=== PATIENT | male | born 1985 | race Caucasian/White ===

== ENCOUNTER 2018-08-24 22:46 | Emergency (ER) | payer OTHER ==
[2018-08-24 22:58] VITALS: BP 105/64
--- NOTE | 2018-08-25 00:42 | XRay Report ---
CHEST 2 VIEWS INDICATION / CLINICAL INFORMATION: chestpain. COMPARISON: None available. FINDINGS: SUPPORT DEVICES: None. HEART / MEDIASTINUM: No significant abnormality. LUNGS / PLEURA: No significant pulmonary or pleural abnormality. No pneumothorax. ADDITIONAL FINDINGS: No significant additional findings. IMPRESSION: 1. No acute findings. Signer Name: Anatoliy Menjivar MD Signed: 08/25/2018 12:38 AM Workstation Name: [id number]
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
[2018-08-25] MEDS ORDERED: TRIPLE ANTIBIOTIC TP ONE (01:47)
== END 2018-08-25 02:00 | disposition home or self-care (01) ==
LOC: ED 22:46
DX: T22.112A Burn of first degree of left forearm, initial encounter (principal); T31.0 Burns involving less than 10% of body surface; R07.89 Other chest pain; E11.9 Type 2 diabetes mellitus without complications; F17.200 Nicotine dependence, unspecified, uncomplicated; Z90.49 Acquired absence of other specified parts of digestive tract; Z79.4 Long term (current) use of insulin; Z79.899 Other long term (current) drug therapy; V89.2XXA Person injured in unspecified motor-vehicle accident, traffic, initial encounter; W22.11XA Striking against or struck by driver side automobile airbag, initial encounter; Y93.89 Activity, other specified; Y92.410 Unspecified street and highway as the place of occurrence of the external cause; Y99.8 Other external cause status
CPT/HCPCS: 71046; 82962; 93005; 93010; A6250

== ENCOUNTER 2019-04-10 18:37 | Emergency (ER) | payer SELFPAY ==
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
[2019-04-10 19:28] VITALS: BP 118/74
== END 2019-04-10 20:45 | disposition left against medical advice (07) ==
LOC: ED 18:37
DX: M79.645 Pain in left finger(s) (principal); Z53.21 Procedure and treatment not carried out due to patient leaving prior to being seen by health care provider